=== PATIENT | male | born 1990 | race Caucasian/White ===

== ENCOUNTER 2016-09-15 13:04 | Emergency (ER) | payer OTHER, MEDICAID ==
[~2016-09-15] VITALS: Ht 182.9 cm; Wt 99.8 kg
[2016-09-15 15:04] LABS: CALCIUM 9.3 mg/dL (8.5-10.1); CARBON DIOXIDE 24.8 mmol/L (21-32); POTASSIUM SERUM 4.6 mmol/L (3.5-5.1)
[2016-09-15 15:08] LABS: CREATININE SERUM 17.7 mg/dL (0.7-1.3)
[2016-09-15 15:35] VITALS: BP 148/86
== END 2016-09-15 15:35 | disposition home or self-care (01) ==
LOC: ED 13:04
PROVIDERS: Emergency Medicine
DX: S16.1XXA Strain of muscle, fascia and tendon at neck level, initial encounter (principal); S20.219A Contusion of unspecified front wall of thorax, initial encounter; I12.9 Hypertensive chronic kidney disease with stage 1 through stage 4 chronic kidney disease, or unspecified chronic kidney disease; N18.9 Chronic kidney disease, unspecified; Z79.899 Other long term (current) drug therapy; V49.9XXA Car occupant (driver) (passenger) injured in unspecified traffic accident, initial encounter; Y93.89 Activity, other specified; Y99.8 Other external cause status; Y92.89 Other specified places as the place of occurrence of the external cause

== ENCOUNTER 2018-08-01 09:25 | Day surgery (SDC) | payer OTHER, MEDICAID ==
[~2018-08-01] VITALS: Ht 182.9 cm; Wt 108.9 kg
[2018-08-01 11:06] LABS: CALCIUM 7.8 mg/dL (8.5-10.1); CARBON DIOXIDE 26.7 mmol/L (21-32); POTASSIUM SERUM 4.8 mmol/L (3.5-5.1)
[2018-08-01 11:10] LABS: CREATININE SERUM 11.4 mg/dL (0.7-1.3)
[2018-08-01 11:16] LABS: BASOPHIL % 0.2 % (0-2); PLATELET COUNT 234 x10^3mcL (130-400)
[2018-08-01 11:17] LABS: RED CELL DISTRIBUTION WIDTH 16.5 % (11.5-14.5)
[2018-08-01 16:43] VITALS: BP 132/75
== END 2018-08-01 16:35 | disposition home or self-care (01) ==
LOC: OR 09:25
PROVIDERS: Surgery
PROC: 0WP Anatomical Regions, General, Removal (ICD-10-PCS; principal; 2018-08-01 14:00)
DX: I12.0 Hypertensive chronic kidney disease with stage 5 chronic kidney disease or end stage renal disease (principal); N18.6 End stage renal disease
CPT/HCPCS: J0690; J1170; J2001; J2250; J2405; J2704; J3010; J7120

== ENCOUNTER 2019-09-15 00:15 | Emergency (ER) | payer OTHER, MEDICAID ==
[~2019-09-15] VITALS: Ht 182.9 cm; Wt 93.9 kg
[2019-09-15 00:28] VITALS: Ht 182.9 cm; Wt 93.9 kg
[2019-09-15 01:20] LABS: BASOPHIL % 0.3 % (0-2); PLATELET COUNT 193 x10^3mcL (130-400); RED CELL DISTRIBUTION WIDTH 13.1 % (11.5-14.5)
[2019-09-15 01:27] LABS: ALBUMIN 3.4 g/dL (3.4-5.0); BILIRUBIN TOTAL 0.9 mg/dL (0.20-1.00); CALCIUM 9.4 mg/dL (8.5-10.1); CARBON DIOXIDE 29.3 mmol/L (21-32); POTASSIUM SERUM 4.4 mmol/L (3.5-5.1); TOTAL PROTEIN, SERUM 6.4 g/dL (6.4-8.2)
[2019-09-15 01:32] LABS: CREATININE SERUM 11.5 mg/dL (0.7-1.3)
[2019-09-15 05:00] VITALS: BP 177/104
== END 2019-09-15 05:00 | disposition home or self-care (01) ==
LOC: ED 00:15
PROVIDERS: Emergency Medicine
DX: I10 Essential (primary) hypertension (principal); I12.0 Hypertensive chronic kidney disease with stage 5 chronic kidney disease or end stage renal disease; N18.6 End stage renal disease; R06.02 Shortness of breath; Z99.2 Dependence on renal dialysis
CPT/HCPCS: 36415; 83880; J0360; Q0092